=== PATIENT | female | born 2005 | race Caucasian/White ===

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

== ENCOUNTER 2025-03-26 20:53 | Emergency (ER) | payer BC, SELFPAY ==
[2025-03-26 20:56] VITALS: BP 141/89
--- NOTE | 2025-03-26 22:18 | ED.GENMED ---
History of Present Illness
<Sirisha Hargrove MD, Resident - Last Filed: 03/26/25 23:24>
General
Chief Complaint: Swelling
Source: patient and other
Exam Limitations: none
Time Seen by Provider: 03/26/25 22:02
Nursing documentation reviewed up to this point in time: agreed with
History of Present Illness
History of Present Illness:
19yo F with no significant PMH who presents with subacute swelling of R neck and pharynx.
Pt states that about 3 days ago she noticed a swollen area of the R lateral neck, inferior to the jaw. This was accompanied by redness and inflammation in the back of her throat, with swelling noted on the R side of her throat near R tonsil. States
that these sx have interfered with her ability to swallow, will occasionally choke on saliva and also cough up when eating food/drinking for the last few days. Denies any wheezing or stridor but states that when she lies on her R side and tries to
swallow saliva it is slightly hard to breathe. Denies sore throat or fever of tonsilliths. Denies any fevers or night sweats. Denies any new rashes. Denies any preceding cough or rhinorrhea or sick contacts. Denies any CHAZ elsewhere (groin, other
side of neck, axillae). Denies any abrasions/breaks to the skin preceding this or any purulent drainage or erythema from the side of the neck. Denies any ulcers in the mouth. Denies any nausea/vomiting. Denies any CP. Only meds are lexapro & oral
contraception.
Past History
<Sirisha Hargrove MD, Resident - Last Filed: 03/26/25 23:24>
Past History
ED Past Medical History: None
ED Past Surgical History: None
Social History
Tobacco: Non-smoker
Alcohol: None
Review of Systems
<Sirisha Hargrove MD, Resident - Last Filed: 03/26/25 23:24>
Review of Systems
All Other Systems: ROS reviewed and negative except as documented in HPI and ROS
Constitutional: Reports no symptoms
EENT: Reports sore throat, mouth pain and other (neck pain & swelling ; pain with swallowing )
Respiratory: Reports trouble breathing
Cardiac: Reports no symptoms
ABD/GI: Reports no symptoms
: Reports no symptoms
Musculoskeletal: Reports no symptoms
Skin: Reports other (eczema periorbital )
Neurological: Reports no symptoms
Psychiatric: Reports no symptoms
Phy Exam
<Sirisha Hargrove MD, Resident - Last Filed: 03/26/25 23:24>
General Physical Exam
General Presentation: well appearing and no apparent distress
General age: appears stated age
General Skin: warm, dry and other (palpable area of swelling on R lateral upper neck without overlying erythema; no palpable LAD on axilla, supraclavicular, or L neck or posterior cervical )
General Habitus: normal
General Mental: alert
General Hydration: appears well hydrated
ENT Exam
ENT Exam: EOMI, normocephalic and other (pharynx bilateral erythema & edema; no tonsillar exudate; no mucosal lesions or dental abscesses noted )
Cardiovascular Exam
Cardiovascular Exam: regular rate/rhythm and no edema
Pulmonary Exam
Pulmonary Exam: lungs clear and no respiratory distress
Gastrointestinal Exam
Gastrointestinal Exam: non tender, soft and non distended
Neurological Exam
Neurological Exam: alert
Musculoskeletal Exam
Musculoskeletal Exam: neck pain and no edema
Skin Exam
Skin Exam: redness (erythema on bilateral eyelids, per pt not new, part of eczema )
Psychiatric Exam
Psychiatric Exam: normal mood/affect
Scores
<Paula Maloney DO - Last Filed: 03/26/25 23:02>
Heart Failure Risk
Heart Failure Risk Score: Not Applicable
Course
<Sirisha Hargrove MD, Resident - Last Filed: 03/26/25 23:24>
Orders/Labs/Results
Orders:
Orders
03/26/25 22:51
Ibuprofen [Motrin] 600 mg PO NOW STA
Vital Signs
Initial and Last Documented VS:
Initial Vital Signs
Temp Pulse Resp BP Pulse Ox
98.1 F 108 20 141/89 99
03/26/25 20:56 03/26/25 20:56 03/26/25 20:56 03/26/25 20:56 03/26/25 20:56
Last Documented Vital Signs
Temp Pulse Resp BP Pulse Ox
98.6 F 87 14 118/88 100
03/26/25 22:30 03/26/25 22:30 03/26/25 22:30 03/26/25 22:30 03/26/25 22:30
<Paula Maloney DO - Last Filed: 03/26/25 23:02>
Orders/Labs/Results
Orders:
Orders
03/26/25 22:51
Ibuprofen [Motrin] 600 mg PO NOW STA
Vital Signs
Initial and Last Documented VS:
Initial Vital Signs
Temp Pulse Resp BP Pulse Ox
98.1 F 108 20 141/89 99
03/26/25 20:56 03/26/25 20:56 03/26/25 20:56 03/26/25 20:56 03/26/25 20:56
Last Documented Vital Signs
Temp Pulse Resp BP Pulse Ox
98.6 F 87 14 118/88 100
03/26/25 22:30 03/26/25 22:30 03/26/25 22:30 03/26/25 22:30 03/26/25 22:30
<Sirisha Hargrove MD, Resident - Last Filed: 03/26/25 23:24>
MDM/Problems Addressed
Differential Diagnosis Includes:
Ddx:
- Sternocleidomastoid strain
- Strep pharyngitis with associated LAD
- Viral pharyngitis with associated LAD
- Peritonsillar cellulitis vs. abscess
- Infected tonsillith
- Deep space neck infection
- Lymphoma
- Epiglottitis
MDM/Problems Addressed:
- NSAIDs
<Sirisha Hargrove MD, Resident - Last Filed: 03/26/25 23:24>
*Pulse Oximetry
SaO2: 99
Oxygen Mode of Delivery: Room air
Patient hypoxic: no
*Critical Care Note
Total Time (30-74mins, 75-104mins- exclusive of procedures): Not Applicable
ED Attending Note
<Sirisha Hragrove MD, Resident - Last Filed: 03/26/25 23:24>
-
Portions of this chart may have been created with voice recognition software.� Occasional wrong word or��sound alike� substitutions may have occurred due to the inherent limitations of voice recognition software.
<Paula Maloney DO - Last Filed: 03/26/25 23:02>
ED Attending Note
Patient seen and examined by attending physician: Yes
I performed a history and physical exam of patient and discussed management with resident, I reviewed resident's note and agree with documented findings and plan of care.: Yes
ED Attending Note:
This is a 19-year-old female with no significant past medical history save for anxiety, maintained on Lexapro, control pills. She presents with 3-day history of right lateral neck pain, a sense of right lateral neck swelling. No injury, no
fever, no headache, no sore throat. Pain is somewhat worse with swallowing but she is able to do so without difficulty. No dental pain, no earache, no nasal congestion. No rashes. No history of similar episodes in the past.
She took Advil this morning with moderate improvement in pain.
19-year-old female appears her stated age, awake and alert, pleasant, easily communicative and in no acute distress. Vital signs within normal limits. Afebrile.
HEENT: Moderate bilateral tonsillar hypertrophy without erythema nor exudate, posterior pharynx is clear. Oral mucosa is moist. TMs are clear bilaterally. Nares are patent without rhinorrhea.
Neck: There is mild tenderness and mild ropiness right mid sternocleidomastoid muscle. Palpation over the right sternocleidomastoid muscle exactly reproduces patient's pain complaint. There is no adenopathy, no soft tissue swelling. No
thyroidomegaly. No rash nor erythema. Full cervical range of motion without difficulty.
Heart is regular rate and rhythm. No murmur no rub.
Lungs are clear to auscultation. Respirations are easy nonlabored.
Skin is warm and dry, normal color. Good turgor. No rash.
History and exam most consistent with local sternocleidomastoid muscle tenderness. I suspect local muscle strain. There is no adenopathy, no soft tissue swelling nor appreciable neck swelling. Posterior pharynx is clear.
She is afebrile and reports no recent fever. Nothing to suggest infectious process.
Will treat conservatively with a course of ibuprofen for as needed pain. Recommend local heat.
Recommend follow-up with PCP for recheck.
Discharge Plan
Departure
Patient Disposition: Home (Routine Discharge)
Date of Disposition: 03/26/25
Time of Disposition: 22:56
Patient with high blood pressure during this ER visit?: No
Condition: Good
Discharge Problem:
Acute right lateral neck pain, Strain of sternocleidomastoid muscle
Instructions: Muscle strain, Neck pain - ED (DC)
Prescriptions:
New
ibuprofen 600 mg tablet
600 mg PO Q6H PRN (Reason: fever or pain) Qty: 30 0RF
Discontinued
prednisone 20 mg tablet
40 mg PO DAILY Qty: 10 0RF
Activity Restrictions/Additional Instructions:
You were seen in the ED today for R-sided neck pain. It is likely due to a strain of the muscle on the side of your neck (sternocleidomastoid). This can get inflamed and lead to pain with swallowing. You can take ibuprofen to help reduce swelling
and pain.
Please return if you develop a fever or have difficulty breathing.
Interventions
Interventions:
*Risk Screen - Suicide Last Done: 03/26/25 22:30
*General Assessment Last Done: 03/26/25 20:56
*Neglect/Abuse Screening Last Done: 03/26/25 22:30
*ED COVID-19 Vaccine History Last Done: 03/26/25 22:30
*ED Influenza Vaccine History Last Done: 03/26/25 22:30
ED- Cardiac Assessment Last Done: 03/26/25 22:30
ED- Pulmonary Assessment Last Done: 03/26/25 22:30
ED-Skin Assessment Last Done: 03/26/25 22:30
Discharge Date and Time
Print Language: AUSTRIAN
[2025-03-26 22:27] VITALS: BP 118/88
[2025-03-26 22:29] VITALS: BMI 28.8
[2025-03-26 22:30] VITALS: BP 118/88
[2025-03-26] MEDS: MOTRIN 600 MG PO (23:22)
== END 2025-03-26 23:27 | disposition home or self-care (01) ==
LOC: EMR 20:53
PROVIDERS: EMERGENCY PHYSICIAN Emergency Medicine
DX: S16.1XXA Strain of muscle, fascia and tendon at neck level, initial encounter (principal); X58.XXXA Exposure to other specified factors, initial encounter; F41.9 Anxiety disorder, unspecified
CPT/HCPCS: 99283